=== PATIENT | female | born 1970 | race Caucasian/White ===

== ENCOUNTER → 2017-04-13 | Outpatient (CLI) | payer OTHER ==
[2014-08-08 10:56] VITALS: BP 123/84
--- NOTE | 2017-04-13 16:32 | VAS ---
HISTORY: Right limb pain Study: Venous Doppler Comparison: None TECHNIQUE: Multiple leslie scale and color flow Doppler images of the deep venous system were obtained of the right lower extremity FINDINGS: There is normal respiratory phasicity, compression and augmentation of the extremity veins without ev idence of acute DVT. IMPRESSION: 1. Negative for DVT. Reported By:
== END ==
LOC: RAD 15:30
PROVIDERS: ATTEND Nurse Practitioner Family
DX: M79.661 Pain in right lower leg (principal)
CPT/HCPCS: 93971